=== PATIENT | female | born 1955 | race Two or more races ===

== ENCOUNTER 2017-03-04 20:53 | Emergency (ER) | payer OTHER ==
[2017-03-04 21:06] VITALS: BP 148/68
--- NOTE | 2017-03-04 22:43 | ED ---
Skin Complaint - HPI Summary HPI Summary: Patient presents with a small tick attached to the medial aspect of her right lower eyelid since 1899 tonight. Her neice tried to pull it out, but since it is so close to her eye she was scared to try too hard. No vision changes, drainage or fevers. - History of Current Complaint Chief Complaint: EDGeneral Time Seen by Provider: 03/04/17 21:12 Stated Complaint: TICK IN CORNER OF RIGHT EYE Hx Obtained From: Patient, Family/Scrap Separator Onset/Duration: Started Hours Ago Skin Exposure Onset/Duration: Hours Ago Timing: Constant Onset Severity: Moderate Current Severity: Moderate Pain Intensity: 6 Skin Location: Other: - right lower eye lid Aggravating Symptom(s): Other: - tick bite Alleviating Symptom(s): Nothing Associated Signs & Symptoms: Negative Related History: Possible Reaction to: Insect - Allergy/Home Medications Allergies/Adverse Reactions: Allergies Allergy/AdvReac Type Severity Reaction Status Date / Time No Known Allergies Allergy Verified 03/04/17 21:06 PMH/Surg Hx/FS Hx/Imm Hx Previously Healthy: Yes Infectious Disease History: No Infectious Disease History: Denies: Traveled Outside the [place] in Last 30 Days - Family History Known Family History: Positive: None - Social History Occupation: Employed Part-time Lives: With Family Alcohol Use: None Substance Use Type: Reports: None Smoking Status (MU): Never Smoked Tobacco Review of Systems Positive: Other - tick bite to right lower eyelid All Other Systems Reviewed And Are Negative: Yes Physical Exam Triage Information Reviewed: Yes Vital Signs On Initial Exam: Initial Vitals Temp Pulse Resp BP Pulse Ox 97.6 F 66 16 148/68 98 03/04/17 21:00 03/04/17 21:00 03/04/17 21:00 03/04/17 21:00 03/04/17 21:00 Vital Signs Reviewed: Yes Appearance: Positive: Well-Appearing, No Pain Distress, Well-Nourished Skin: Positive: Warm, Skin Color Reflects Adequate Perfusion, Dry, Tender - tick attached to medial aspect of right lower eyelid, Soft Head/Face: Positive: Normal Head/Face Inspection Eyes: Positive: EOMI, CHANEL, Conjunctiva Clear ENT: Positive: Hearing grossly normal Respiratory/Lung Sounds: Positive: Breath Sounds Present Cardiovascular: Positive: RRR Musculoskeletal: Negative: Edema Left, Edema Right Neurological: Positive: Sensory/Motor Intact, Alert, Oriented to Person Place, Time, NV Bundle Intact Distally, Normal Gait Psychiatric: Positive: Affect/Mood Appropriate AVPU Assessment: Alert Procedures - Procedure Summary Procedure Summary: Forceps were used to secure the tick and then I twisted until the tick was free. The head and body were removed. The patient tolerated the procedure well. Diagnostics - Vital Signs Vital Signs Temp Pulse Resp BP Pulse Ox 03/04/17 21:29 97.6 F 66 16 148/68 98 03/04/17 21:00 97.6 F 66 16 148/68 98 - Laboratory Lab Statement: Any lab studies that have been ordered have been reviewed, and results considered in the medical decision making process. Course/Dx - Differential Diagnoses - Skin Complaint Differential Diagnoses: Abscess, Cellulitis, Foreign Body, Local Allergic Reaction, MRSA, Tick Born Illness, Urticaria - Diagnoses Provider Diagnoses: Tick bite Discharge - Discharge Plan Condition: Stable Disposition: HOME Patient Education Materials: Tick Bite (ED) Referrals: Urvashi Quinones MD [Primary Care Provider] - Additional Instructions: Follow-up with your primary care provider as needed.
== END 2017-03-04 22:23 | disposition home or self-care (01) ==
LOC: ED 20:53
DX: S00.86XA Insect bite (nonvenomous) of other part of head, initial encounter (principal); W57.XXXA Bitten or stung by nonvenomous insect and other nonvenomous arthropods, initial encounter; Y93.9 Activity, unspecified; Y92.9 Unspecified place or not applicable
CPT/HCPCS: 99281